=== PATIENT | female | born 1960 | race Caucasian/White ===

== ENCOUNTER 2018-02-07 08:43 | Day surgery (SDC) | payer OTHER ==
[~2018-02-07 08:43] MED LIST: Lidocaine 2% 5 ML SDV ONE; Midazolam 1 MG/ML 2 ML SDV ONE; Ondansetron 4 MG/2 ML SDV ONE; Propofol 200 MG/20 ML SDV ONE; fentaNYL 250 MCG/5 ML SDV ONE
--- NOTE | 2018-02-07 09:22 | PCM.PREANE ---
Preanesthetic Assessment - Anesthesia/Transfusion/Family Hx Anesthesia History: No Prior Anesthesia Family History of Anesthesia Reaction: No Transfusion History: No Prior Transfusion(s) Intubation History: Unknown - Review of Systems General: No Symptoms Pulmonary: No Symptoms Cardiovascular: No Symptoms Gastrointestinal: No Symptoms Neurological: No Symptoms Other: Reports: None - Physical Assessment O2 Sat by Pulse Oximetry: 96 Respiratory Rate: 16 Vital Signs: Last Vital Signs Temp 36.2 C 02/07/18 09:00 Pulse 72 02/07/18 09:00 Resp 16 02/07/18 09:00 BP 154/92 H 02/07/18 09:00 Pulse Ox 96 02/07/18 09:00 Height: 1.8 m Weight: 153.314 kg ASA Class: 3 Mental Status: Alert & Oriented x3 Airway Class: Mallampati = 3 Dentition: Reports: Normal Dentition, Bridge (left lower (fixed)) Thyro-Mental Finger Breadths: 3 Mouth Opening Finger Breadths: 2 ROM/Head Extension: Full Lungs: Clear to Auscultation, Normal Respiratory Effort Cardiovascular: Regular Rate, Regular Rhythm - Lab Values: Laboratory Last Values WBC 6.90 K/uL (4.0-11.0) 02/07/18 09:03 RBC 4.74 M/uL (4.30-5.90) 02/07/18 09:03 Hgb 14.2 g/dL (12.0-16.0) 02/07/18 09:03 Hct 43.3 % (36.0-46.0) 02/07/18 09:03 MCV 91.4 fL (80.0-98.0) 02/07/18 09:03 MCH 30.0 pg (27.0-32.0) 02/07/18 09:03 MCHC 32.8 g/dL (31.0-37.0) 02/07/18 09:03 RDW Std Deviation 47.1 fl (28.0-62.0) 02/07/18 09:03 RDW Coeff of Elizabeth 14 % (11.0-15.0) 02/07/18 09:03 Plt Count 259 K/uL (150-400) 02/07/18 09:03 MPV 10.90 fL (7.40-12.00) 02/07/18 09:03 Neut % (Auto) 57.5 % (48.0-80.0) 02/07/18 09:03 Lymph % (Auto) 25.4 % (16.0-40.0) 02/07/18 09:03 Lassen % (Auto) 9.7 % (0.0-15.0) 02/07/18 09:03 Eos % (Auto) 6.5 % (0.0-7.0) 02/07/18 09:03 Baso % (Auto) 0.9 % (0.0-1.5) 02/07/18 09:03 Neut # (Auto) 4.0 K/uL (1.4-5.7) 02/07/18 09:03 Lymph # (Auto) 1.8 K/uL (0.6-2.4) 02/07/18 09:03 Lassen # (Auto) 0.7 K/uL (0.0-0.8) 02/07/18 09:03 Eos # (Auto) 0.5 K/uL (0.0-0.7) 02/07/18 09:03 Baso # (Auto) 0.1 K/uL (0.0-0.1) 02/07/18 09:03 Nucleated RBC % 0.0 /100WBC 02/07/18 09:03 Nucleated RBCs # 0 K/uL 02/07/18 09:03 - Allergies Allergies/Adverse Reactions: Allergies Allergy/AdvReac Type Severity Reaction Status Date / Time No Known Allergies Allergy Verified 02/03/18 09:26 - Blood Blood Available: No - Anesthesia Plan Pre-Op Medication Ordered: None - Acknowledgements Anesthesia Type Planned: General Anesthesia Pt an Appropriate Candidate for the Planned Anesthesia: Yes Alternatives and Risks of Anesthesia Discussed w Pt/Guardian: Yes Pt/Guardian Understands and Agrees with Anesthesia Plan: Yes PreAnesthesia Questionnaire HEENT History: Reports: Other (See Below) Other HEENT History: wears glasses Cardiovascular History: Reports: Hypertension Respiratory History: Reports: Asthma, Sleep Apnea Other Respiratory History: asthma is allergy related (grain dust, grass)- no inhaler, uses CPAP for sleep apnea [employer] History: Reports: Endocrine/Metabolic History: Reports: Hypothyroidism, Obesity/BMI 30+ - Past Surgical History Endocrine Surgical History: Reports: Thyroid Biopsy - SUBSTANCE USE Smoking Status *Q: Never Smoker Recreational Drug Use History: No - HOME MEDS Home Medications: Home Meds Cyanocobalamin (Vitamin B-12) [Vitamin B-12] 1,000 mcg PO DAILY 02/03/18 [ History] Levothyroxine Sodium [Synthroid] 125 mcg PO DAILY 02/03/18 [History] Losartan/Hydrochlorothiazide [Losartan-HCTZ 50-12.5 MG] 1 tab PO DAILY 02/03/18 [History] - CURRENT (IN HOUSE) MEDS Current Meds: Current Medications Discontinued Medications Fentanyl (Sublimaze) Confirm Administered Dose 250 mcg .ROUTE .STK-MED ONE Stop: 02/07/18 07:30 Lidocaine (Xylocaine-Mpf 2%) Confirm Administered Dose 5 ml .ROUTE .STK-MED ONE Stop: 02/07/18 07:30 Midazolam HCl (Versed 1 Mg/Ml) Confirm Administered Dose 2 mg .ROUTE .STK-MED ONE Stop: 02/07/18 07:30 Ondansetron HCl (Zofran) Confirm Administered Dose 4 mg .ROUTE .STK-MED ONE Stop: 02/07/18 07:30 Propofol (Diprivan 20 Ml) Confirm Administered Dose 200 mg .ROUTE .STK-MED ONE Stop: 02/07/18 07:30
[2018-02-07] MEDS ORDERED: Dexamethasone 4 MG/ML 5 ML MDV ONE (09:55)
--- NOTE | 2018-02-07 10:45 | PCM.OPNOTE ---
- General Post-Op/Procedure Note Date of Surgery/Procedure: 02/07/18 Operative Procedure(s): operative hysteroscopy with polypectomy Findings: Uterus anteverted sounds to 8 cm, polyp attached to posterior lower uterine well , bilateral tubal ostia visualized, endometrium otherwise atrophic Pre Op Diagnosis: endometrial polyp Post-Op Diagnosis: Same Anesthesia Technique: General LMA Primary Surgeon: Zaira England Anesthesia Provider: Afua Florian Pathology: endometrial polyp, endocervical curetting, endometrial curettings Fluid Replacement, Intraop: 700 EBL in mLs: 30 Complications: None Known Condition: Good
--- NOTE | 2018-02-07 13:26 | OR ---
SURGEON: Zaira England M.D. DATE OF PROCEDURE: 02/07/2018 PREOPERATIVE DIAGNOSES: 1. Endometrial polyp. 2. Postmenopausal bleeding. POSTOPERATIVE DIAGNOSES: 1. Endometrial polyp. 2. Postmenopausal bleeding. PROCEDURE: Hysteroscopic polypectomy, fractional D and C. ANESTHESIA: LMA. ESTIMATED BLOOD LOSS: 30 mL. FLUIDS: 700 mL of crystalloid. Hysteroscopic deficit was 500 mL of normal saline. FINDINGS: Anteverted uterus, sounds to 8 cm. There was an endometrial polyp, the base of which was at the posterior lower uterine segment, filling the entire uterine cavity. Once the polyp was removed, bilateral tubal ostia were easily identified and there was primarily atrophic appearing endometrium for the remainder of the uterine cavity. COMPLICATIONS: None known. DISPOSITION: The patient was transferred to recovery in good condition. BRIEF HISTORY: This is a 57-year-old female, she presented to her primary care provider with some postmenopausal bleeding. Examination revealed a mass at the external os of the cervix. This mass was an endometrial polyp, which was removed in the office and was benign to evaluate the uterine cavity. Saline-enhanced ultrasound was performed after ultrasound showed a cystic enlarged thickened endometrium of 22 mm. Saline-enhanced ultrasound showed an endometrial polyp. She was therefore recommended to proceed with a hysteroscopic polypectomy and fractional D and C with risks discussed including bleeding, infection, uterine perforation with injury to surrounding organs, risk of fluid overload, risk of anesthesia. Understanding all these risks, she does desire to proceed. DESCRIPTION OF PROCEDURE: With the patient in dorsal lithotomy position, under adequate general LMA analgesia, the patient was placed in low dorsal lithotomy position and prepped for vaginal surgery. SCDs were in place. An appropriate time-out was held and the patient was draped. Bimanual examination was performed with findings as noted above. The bladder had been drained with a straight cath. Speculum was placed in the vagina. Cervix was grasped with an Allis clamp. The uterus sounded to 8 cm. Did not require any dilatation to accept the 6 mm hysteroscope for the MyoSure equipment. The hysteroscope was placed into the uterine cavity. The large polyp was identified; however, beyond the polyp, bilateral tubal ostia could be seen. The MyoSure device was placed and was utilized to completely excise the uterine polyp and any other prominent areas of the endometrium. This being completed, the hysteroscope was removed from the uterine cavity. Sharp curettage was performed of the endocervix using a box curette and collecting the tissue with Cytobrush, this was sent for pathology. Sharp curettage of the uterine cavity was performed starting at the 12 o'clock position and proceeding in a clockwise manner, and a small amount of two additional tissue was obtained. All the instruments were removed from the vagina. Final sponge, needle, and instrument counts were reported as correct. There were no known complications. The patient was transferred to recovery in good condition. NUNU BRIONES /[id number]
== END 2018-02-07 12:57 | disposition home or self-care (01) ==
LOC: MW.SDS 08:43
PROVIDERS: ATTEND Obstetrics & Gynecology
DX: N84.1 Polyp of cervix uteri (principal); N84.0 Polyp of corpus uteri; I10 Essential (primary) hypertension; E03.9 Hypothyroidism, unspecified; J45.909 Unspecified asthma, uncomplicated; G47.30 Sleep apnea, unspecified; Z79.899 Other long term (current) drug therapy
CPT/HCPCS: 36415; 58558; 85025; J1100; J2250; J2405; J3010; 00952; 88305; J2704